=== PATIENT | male | born 1960 | race Two or more races ===

== ENCOUNTER 2018-12-03 19:14 | Emergency (ER) | payer OTHER ==
[~2018-12-03] VITALS: Ht 172.7 cm; Wt 62.2 kg
[2018-12-03] MEDS ORDERED: ACETAMINOPHEN ES 500 MG TABLET ONE (21:20)
[2018-12-03] MEDS ORDERED: IBUPROFEN 600 MG TABLET PO ONE ×2 (21:20→21:30)
--- NOTE | 2018-12-03 21:25 | NUR ---
BIB FAMILY C/O COUGH/CONGESTION WITH FEVER X 1 MONTH. SENT HERE FROM URGENT. PT AAOX4, VSS. DENIES CP, DIZZINESS, N/V @ THIS TIME. PT SEEN & EVAL'D BY KIKA JETER. MEDICATED FOR FEVER & WILL CONT TO MONITOR.
[2018-12-03] MEDS ORDERED: LEVOFLOXACIN 750 MG /D5W 150ML 150 ML IV ONE ×2 (21:28→21:30)
[2018-12-03] MEDS ORDERED: ACETAMINOPHEN ES 500 MG TABLET PO ONE (21:30)
[2018-12-03 21:43] LABS: BASOPHILS # (AUTO) 0.1 /CMM (0.0-0.2); BASOPHILS % (AUTO) 0.5 % (0.0-2.0); EOSINOPHILS % (AUTO) 4.3 % (0.0-6.0); HEMATOCRIT 43 % (39-51); HEMOGLOBIN 14.9 g/dL (13.5-17.5); LYMPHOCYTES # (AUTO) 1.6 /CMM (0.8-4.8); MEAN CORPUSCULAR HGB CONC 34 g/dl (31.0-36.0); MEAN CORPUSCULAR VOLUME 90 fL (80-96); MONOCYTES # (AUTO) 0.9 /CMM (0.1-1.30); MONOCYTES % (AUTO) 7.3 % (2.0-12.0); NEUTROPHILS # (AUTO) 9.1 /CMM (1.8-8.9); NEUTROPHILS % (AUTO) 74.9 % (43.0-81.0); PLATELET COUNT (AUTO) 265 /CMM (150-450); RED BLOOD CELL COUNT(AUTO) 4.85 MIL/uL (4.5-6.0); WHITE BLOOD COUNT (AUTO) 12.2 K/uL (4.3-11.0)
[2018-12-03 21:51] LABS: CALCIUM, SERUM 8.7 mg/dL (8.5-10.1); CREATININE 0.8 mg/dL (0.6-1.3); POTASSIUM 3.8 mmol/L (3.5-5.1)
[2018-12-03] MEDS ORDERED: CODEINE/PROMETHAZINE HCL 5 ML UDC PO PRN (22:30)
[2018-12-03] MEDS ORDERED: diphenhydrAMINE HCL 50 MG/ML VIAL IV ONE (23:00)
[2018-12-03] MEDS ORDERED: methylPREDNISolone SOD SUCC 125 MG/2ML VIAL IV ONE (23:00)
[2018-12-03] MEDS ORDERED: DOXYCYCLINE HYCLATE (100 MG) 100 MG TABLET PO ONE (23:00)
[2018-12-03] MEDS ORDERED: FAMOTIDINE (20 MG) 20 MG TABLET PO ONE (23:00)
--- NOTE | 2018-12-03 23:00 | NUR ---
PT HAD ALLERGIC RXN FROM [facility], PT FELT WARM & REDNESS & WELTS ON FACE. DENIES SOB OR RESP DISTRESS NOTED. KIKA JETER AWARE.
[2018-12-03] MEDS ORDERED: DOXYCYCLINE HYCLATE (100 MG) 100 MG TABLET ONE (23:14)
[2018-12-03] MEDS ORDERED: methylPREDNISolone SOD SUCC 125 MG/2ML VIAL ONE (23:14)
[2018-12-03] MEDS ORDERED: diphenhydrAMINE HCL 50 MG/ML VIAL ONE (23:14)
[2018-12-03] MEDS ORDERED: FAMOTIDINE/PF INJ 20 MG/2 ML VIAL IV ONE ×2 (23:15→23:30)
--- NOTE | 2018-12-03 23:36 | NUR ---
MEDICATED FOR ALLERGIC RXN, PT DANETTE WELL.
[2018-12-04 00:01] VITALS: BP 134/84
--- NOTE | 2018-12-04 00:01 | NUR ---
Patient discharged to home in stable condition. Written and verbal after care instructions given. Patient verbalizes understanding of instruction. IV removed. Catheter intact and site benign. Pressure and 4x4 applied to site. No bleeding noted.
== END 2018-12-04 00:04 | disposition home or self-care (01) ==
LOC: ER 19:16
DX: J18.9 Pneumonia, unspecified organism (principal); I10 Essential (primary) hypertension; F17.200 Nicotine dependence, unspecified, uncomplicated; Z88.0 Allergy status to penicillin
CPT/HCPCS: 36415; 71045-TC; 80048-TC; 85025-TC; 87400; J1200; J1956; J2930; J3490

== ENCOUNTER 2019-04-22 20:44 | Inpatient (IN) | payer BC, OTHER ==
[~2019-04-22] VITALS: Ht 182.9 cm; Wt 53.5 kg
--- NOTE | 2019-04-22 20:50 | NUR ---
[id number] FROM HOME C/O SOB X1 DAY. PER RA, PT O2 SAT 60% ON ARRIVAL. PT PLACED ON CPAP EN ROUTE, O2 SAT 91-92%. PT APPEARS UNCOMFORTABLE AND DIAPHORETIC. NOTED TACHYPNEA. PLACED ON CONTINUOUS RESEARCH QUALITY ASSURANCE SPECIALIST AND PULSE OX, WILL CONTINUE TO MONITOR
[2019-04-22 21:00] VITALS: BP 189/117
[2019-04-22] MEDS ORDERED: LORAZEPAM INJ 2 MG/ML VIAL IV ONE (21:00)
[2019-04-22] MEDS ORDERED: LORAZEPAM INJ 2 MG/ML VIAL ONE (21:01)
--- NOTE | 2019-04-22 21:05 | NUR ---
BROADCAST DIRECTOR OPERATIONS AT BEDSIDE FOR BLOOD DRAW
--- NOTE | 2019-04-22 21:12 | NUR ---
RT AT BEDSIDE FOR BIPAP
[2019-04-22 21:13] LABS: BASOPHILS # (AUTO) 0.1 /CMM (0.0-0.2); BASOPHILS % (AUTO) 0.2 % (0.0-2.0); EOSINOPHILS % (AUTO) 0.2 % (0.0-6.0); HEMATOCRIT 44 % (39-51); HEMOGLOBIN 13.9 g/dL (13.5-17.5); LYMPHOCYTES # (AUTO) 2.3 /CMM (0.8-4.8); LYMPHOCYTES % (AUTO) 6.9 % (20.0-44.0); MEAN CORPUSCULAR HGB CONC 32 g/dl (31.0-36.0); MEAN CORPUSCULAR VOLUME 91 fL (80-96); MONOCYTES # (AUTO) 1.6 /CMM (0.1-1.30); MONOCYTES % (AUTO) 4.9 % (2.0-12.0); NEUTROPHILS # (AUTO) 28.7 /CMM (1.8-8.9); NEUTROPHILS % (AUTO) 87.8 % (43.0-81.0); RED BLOOD CELL COUNT(AUTO) 4.82 MIL/uL (4.5-6.0)
[2019-04-22 21:20] LABS: CALCIUM, SERUM 9.1 mg/dL (8.5-10.1); CARBON DIOXIDE 21 mmol/L (21-32); CHLORIDE 104 mmol/L (98-107); CREATININE 0.7 mg/dL (0.6-1.3); GLUCOSE 182 mg/dL (74-106); POTASSIUM 4.6 mmol/L (3.5-5.1); SODIUM SERUM 142 mmol/L (136-145); UREA NITROGEN, BLOOD 29 mg/dL (7-18)
[2019-04-22 21:27] LABS: ALANINE AMINOTRANSFERASE 45 U/L (12-78); ALBUMIN 3.4 g/dL (3.4-5.0); ALKALINE PHOSPHATASE 87 U/L (46-116); ASPARTATE AMINOTRANSFERASE 38 U/L (15-37); BILIRUBIN,DIRECT 0.2 mg/dL (0.0-0.2); BILIRUBIN,TOTAL 0.8 mg/dL (0.2-1.0); TOTAL PROTEIN, SERUM 6.8 g/dL (6.4-8.2)
[2019-04-22 21:30] LABS: WHITE BLOOD COUNT (AUTO) 32.7 K/uL (4.3-11.0)
[2019-04-22 21:31] LABS: PLATELET COUNT (AUTO) 39 /CMM (150-450)
[2019-04-22] MEDS ORDERED: ETOMIDATE 2 MG/ML VIAL ONE (21:31)
--- NOTE | 2019-04-22 21:41 | NUR ---
DR. ALEXANDER, RN, AND RT AT BEDSIDE FOR CHEST TUBE PLACEMENT
--- NOTE | 2019-04-22 21:48 | NUR ---
CHEST TUBE SUCCESSFULLY INSERTED. 16FR.
[2019-04-22 21:49] LABS: BAND % (MANUAL) 3 % (0.0-5.0); LYMPHOCYTES % (MANUAL) 11 % (16-48); MONOCYTES % (MANUAL) 9 % (0-11.0); NEUTROPHILS % (MANUAL) 75 (42-76); REACTIVE LYMPHOCYTES 2 % (0-0)
--- NOTE | 2019-04-22 21:50 | NUR ---
RT PT CAME IN VIA EMS ON CPAP FOR SOB, DNR/ DNI ALERT AWAKE WITH SEVERE RESP DISTRESS, PLACED ON NON REBREATHER, NT SX THICK YELLOW - PINK TINGE SECRETIONS, PLACED ON BIPAP PER MD FOR RESP DISTRESS, CHEST XRAY DONE RIGHT PNEUMOTHORAX, PLACED PT ON NON REBREATHER FOR CHEST TUBE INSERTION Addendum: 04/22/19 at 1116 by HOLLY BELLAMY RT Amended: Links added.
--- NOTE | 2019-04-22 21:59 | NUR ---
RADIOLOGY AT BEDSIDE FOR CXR
[2019-04-22] MEDS ORDERED: IV NS 0.9% 1,000 ML IV ONE ×2 (22:00→22:30)
--- NOTE | 2019-04-22 22:02 | NUR ---
ICU 259, STILL WAITING FOR NURSE
[2019-04-22] MEDS ORDERED: CLINDAMYCIN 900 MG/6 ML VIAL ONE (22:15)
[2019-04-22] MEDS ORDERED: HYDROMORPHONE 1 MG/1 ML DISP.SYRIN ONE (22:16)
[2019-04-22] MEDS ORDERED: CLINDAMYCIN 600 MG in IV D5W 100 ML IV ONE (22:30)
[2019-04-22] MEDS ORDERED: HYDROMORPHONE INJ 0.5 MG/0.5 ML SYRINGE IV ONE (22:30)
[2019-04-22] MEDS ORDERED: ETOMIDATE 2 MG/ML VIAL IV ONE (23:00)
--- NOTE | 2019-04-22 23:08 | NUR ---
ATTEMPTED TO GIVE REPORT, NO NURSE ASSIGNED
[2019-04-22] MEDS ORDERED: MORPHINE SULFATE INJ 2 MG/ML DISP.SYRIN IV PRN (23:30)
[2019-04-22] MEDS ORDERED: GLYCOPYRROLATE 0.2 MG/ML VIAL IV PRN (23:30)
[2019-04-22] MEDS ORDERED: ONDANSETRON HCL/PF 4 MG/2 ML VIAL IVP PRN (23:30)
[2019-04-22] MEDS ORDERED: LORAZEPAM INJ 2 MG/ML VIAL IVP PRN (23:30)
[2019-04-22] MEDS ORDERED: ACETAMINOPHEN 650 MG/SUPP.RECT RC PRN (23:30)
[2019-04-22] MEDS ORDERED: SCOPOLAMINE HBR 1 EA PATCH.TD72 TD SCH (23:30)
[2019-04-23] VITALS (20 sets, daily range): BP systolic 105–155; BP diastolic 58–86
--- NOTE | 2019-04-23 00:16 | NUR ---
PT TRANSFERRED PER ACLS PROTOCOL
--- NOTE | 2019-04-23 00:30 | NUR ---
RN PT REFUSED SKIN AND BODY ASSESSMENT AT THIS TIME. , WILL FOLLOW UP IN AM
--- NOTE | 2019-04-23 01:30 | NUR ---
RN PT RECEIVED FROM ER VIA [facility], PT ON NON REBREATHER MASK 15L, WITH CHEST TUBE ON RIGHT SIDE, NOTED WITH AUDIBLE GURGLING , POSSIBLE AIR LEAK, DRESSING REMOVED AND NOTED IMPROPER SEAL FROM CHEST TUBE TO CHAMBER. CALLED ER TO NOTIFIED MD. ER NURSE AT BEDSIDE ABLE TO RESEAL LEAK WITH TAPE. JORGE LOYD ICER AIR CONDITIONING MADE AWARE, WITH NO NEW ORDER RECEIVED, WILL CONTINUE CLOSE MONITORING .
--- NOTE | 2019-04-23 03:00 | NUR ---
RN AT BEDSIDE, PT REQUESTED TO CALL TO STAY WITH PT OVERNIGHT. CHARGE NURSE AWARE.
--- NOTE | 2019-04-23 05:03 | NUR ---
RN BLOOD BANK CALLED, [facility] WILL DELIVER PLATELETS AROUND 7-7:30 AM , CHARGE NURSE AWARE.
--- NOTE | 2019-04-23 05:40 | NUR ---
RN PT REQUESTED TO DRINK , SPOKE TO NICKOLAS, WITH ORDER TO DO BEDSIDE SWALLOW EVAL AND ORDER ST IN AM. CHARGE NURSE AWARE. PATIENT AND MADE AWARE
--- NOTE | 2019-04-23 07:06 | NUR ---
RN TOTAL AMOUNT FROM CHEST TUBE 75 ML
--- NOTE | 2019-04-23 07:26 | NUR ---
OPENING PT ON NRM AT 15 LPM CURRENTLY SLEEPING FAMILY AT BEDSIDE BEING TRANSFUSED WITH PLATELETS RUNNING THROUGH 22G IN RAC CLEAN DRY INTACT. PT HAS 20G IN L-HAND WITH SKIN RED FROM HEMATOMA H/L.PT ST 126 ON AUDIT SPECIALIST. PT COMFORT MEASURES ONLY STATUS. PT HAS RIGHT SIDE CHEST TUBE WITH SEROSANGUINEOUS LIQUID IN TUBING. PT NPO PENDING SWALLOW EVALUATION. HOB ELEVATED CALL SPARKS NEXT TO PT BED IN LOW POSITION WILL CONTINUE TO MONITOR
[2019-04-23] MEDS ORDERED: ALBU8.5H8 IH (08:17)
[2019-04-23] MEDS ORDERED: FAMO20TA80 PO (08:17)
[2019-04-23] MEDS ORDERED: DEXA4TAB PO (08:17)
[2019-04-23] MEDS ORDERED: METO25TA6 PO (08:17)
--- NOTE | 2019-04-23 08:22 | NUR ---
TRANSFUSION TRANSFUSION COMPLETED AT 0811 TOLERATED WELL VITAL SIGNS STABLE
[2019-04-23] MEDS ORDERED: PANTOPRAZOLE 40 MG VIAL IV SCH (09:00)
[2019-04-23] MEDS ORDERED: NEXIUM 40 MG VIAL IV SCH (10:00)
[2019-04-23] MEDS: FAMOTIDINE/PF INJ 20 MG/2 ML VIAL IV SCH ×2 (10:29→21:02)
[2019-04-23] MEDS: CLINDAMYCIN 600 MG in IV D5W 50 ML IV SCH ×2 (12:24→21:02)
--- NOTE | 2019-04-23 14:02 | NUR ---
PT DOWN GRADED TO MED SURG TAKEN SAFELY TO ROOM 110
[2019-04-23] MEDS ORDERED: VANCOMYCIN 1 GM in IV D5W 250 ML IV ONE (14:30)
--- NOTE | 2019-04-23 15:13 | NUR ---
PT WANTS TO EAT SOB ON NRM AND RIGHT SIDED CHEST TUBE PT HAS SWALLOW EVAL ORDERED CALL FOR EVALUATION NOT AVAILABLE. ATTEMPTED TO DO EVALUATION PT ABLE TO EAT ICE CHIPS DRINK WATER AND THEN REFUSED JUICE WILL CONTINUE TO MONITOR FOR FURTHER PROGRESS. TEXTED MD LOYD FAMILY WANTS UP DATE ON PLAN OF CARE
[2019-04-23] MEDS ORDERED: FEE PK DOSING 1 MIN EA MC ONE (15:20)
--- NOTE | 2019-04-23 17:29 | NUR ---
FAMILY SPOKE WITH [facility] CONSENT SIGNED 04/24 CANDY BAR ATTENDANT WILL EVALUATE PT FOR PLACEMENT. SPOKE WITH MD HAIR ABOUT FAMILY HOSPICE CONCERN AND MED RECONCILIATION WELL
[2019-04-23] MEDS ORDERED: IPRATROPIUM NEB FS 0.5 MG/2.5 ML AMPUL.NEB NEB PRN (17:30)
[2019-04-23] MEDS ORDERED: ALBUTEROL FS 2.5 MG/0.5 ML VIAL.NEB NEB PRN (17:30)
[2019-04-23] MEDS: METOPROLOL TARTRATE 25 MG TABLET PO SCH (17:37)
[2019-04-23] MEDS: VANCOMYCIN 0.75 GM in IV D5W 250 ML IV SCH (17:55)
[2019-04-23] MEDS: DEXAMETHASONE 4 MG TABLET PO SCH (18:24)
--- NOTE | 2019-04-23 18:57 | NUR ---
CLOSING PT ON NON REBREATHER MASK 15L, WITH CHEST TUBE ON RIGHT SIDE, 15% OF VOLUME PRESENT PER AM X-RAY NOTED WITH AUDIBLE GURGLING , POSSIBLE AIR LEAK, DRESSING REMOVED AND NOTED IMPROPER SEAL FROM CHEST TUBE TO CHAMBER. PT KEPT SAFE ALL SHIFT ALL NEEDS ATTENDED TO WILL GIVE REPORT TO PM SHIFT RN FOR CONTINUITY OF CARE .
--- NOTE | 2019-04-23 19:00 | NUR ---
MS/RN NOTES PT IN BED RESTING COMFORTABLY AT THIS TIME. NO S/S OF ACUTE DISTRESS NOTED. RESPIRATION EVEN AND UNLABORED. NO SOB NOTED. PATIENT ON 15 LITTLER VIA NON- REBREATHER MASK, SATURATION NOTED 98%. CHEST TUBE IN PLACE, PATENT, DRAINING WELL WITH SEROSANGUINEOUS COLOR LIQUID. PATIENT A/O X4, DENIES ANY PAIN OR DISCOMFORT AT THIS TIME. WILL CONTINUE TO MONITOR PATIENT PER PLAN OF CARE, SAFETY MAINTAINED, BED AT THE LOWEST POSITION, LOCKED, X2 SIDE RAILS UP. HOB ELEVATED JERRY POSITION AT AL THE TIME. CALL LIGHT WITHIN REACH.
--- NOTE | 2019-04-23 23:55 | NUR ---
FLOORING GRADER NOTE RECEIVED MIDSHIFT REPORT FROM ANTOLIN FERRERA. PT IN STABLE CONDITION A&O X3. AT BEDSIDE. PT. CURRENTLY ASLEEP WITH NONREBREATHER 15 L, TOLERATING WELL. NO SIGNS OF SOB OR DISTRESS, NO C/O PAIN. TELE MONITOR READING ST WITH PVC'S. RFA IV IN PLACE. CHEST TUBE IN PLACE WITH DRAINAGE NOTED. ALL CURRENT NEEDS MET. BED LOW, LOCKED, UPPER RAILS UP, COMFORT MEASURES IN PLACE, AND CALL LIGHT WITHIN REACH. WILL CONT. TO MONITOR.
[2019-04-24] MEDS: VANCOMYCIN 0.75 GM in IV D5W 250 ML IV SCH ×2 (00:01→08:45)
[2019-04-24 04:00] VITALS: BP 140/79
[2019-04-24] MEDS: CLINDAMYCIN 600 MG in IV D5W 50 ML IV SCH ×2 (04:46→13:00)
--- NOTE | 2019-04-24 06:49 | NUR ---
MS RN NOTE PT IN STABLE CONDITION A&O X3. AT BEDSIDE. PT. CURRENTLY ASLEEP WITH NONREBREATHER 15 L, TOLERATING WELL. NO SIGNS OF SOB OR DISTRESS, NO C/O PAIN. TELE MONITOR READING ST WITH PVC'S. RFA IV IN PLACE. CHEST TUBE IN PLACE WITH DRAINAGE NOTED. ALL CURRENT NEEDS MET. BED LOW, LOCKED, UPPER RAILS UP, PT. REPOSITION PER UNIT PROTOCOL, COMFORT MEASURES IN PLACE, AND CALL LIGHT WITHIN REACH. WILL CONT. TO MONITOR AND ENDORSE TO NEXT SHIFT FOR MILE.
[2019-04-24 07:27] LABS: CALCIUM, SERUM 8.4 mg/dL (8.5-10.1); CREATININE 0.6 mg/dL (0.6-1.3); MAGNESIUM 1.7 mg/dL (1.8-2.4); PHOSPHORUS 3.8 mg/dL (2.5-4.9)
--- NOTE | 2019-04-24 07:30 | NUR ---
OUTER DIAMETER GRINDER TOOL NOTE RECEIVED PT IN BED, PT IN STABLE CONDITION A&O X3. AT BEDSIDE. PT. CURRENTLY ASLEEP WITH NONREBREATHER 15 L, TOLERATING WELL. NO SIGNS OF SOB OR DISTRESS, NO C/O PAIN. RFA IV FLUSHES WELL, SITE CLEAR. CHEST TUBE TO CONTINUOUS SUCTION IN PLACE, REDDISH DRAINAGE. NEEDS ANTICIPATED. BED LOW, LOCKED, UPPER RAILS UP, COMFORT MEASURES IN PLACE, AND CALL LIGHT WITHIN REACH. WILL CONT. TO MONITOR.
[2019-04-24 07:52] LABS: BASOPHILS % (AUTO) 0.1 % (0.0-2.0); EOSINOPHILS % (AUTO) 0.1 % (0.0-6.0); HEMATOCRIT 34 % (39-51); HEMOGLOBIN 11.2 g/dL (13.5-17.5); LYMPHOCYTES # (AUTO) 0.8 /CMM (0.8-4.8); LYMPHOCYTES % (AUTO) 4.9 % (20.0-44.0); MEAN CORPUSCULAR HGB CONC 33 g/dl (31.0-36.0); MEAN CORPUSCULAR VOLUME 89 fL (80-96); MONOCYTES # (AUTO) 0.8 /CMM (0.1-1.30); MONOCYTES % (AUTO) 4.4 % (2.0-12.0); NEUTROPHILS # (AUTO) 15.6 /CMM (1.8-8.9); NEUTROPHILS % (AUTO) 90.5 % (43.0-81.0); RED BLOOD CELL COUNT(AUTO) 3.78 MIL/uL (4.5-6.0); WHITE BLOOD COUNT (AUTO) 17.3 K/uL (4.3-11.0)
[2019-04-24 08:00] VITALS: BP 133/73
[2019-04-24 08:12] LABS: PLATELET COUNT (AUTO) 23 /CMM (150-450)
[2019-04-24] MEDS: DEXAMETHASONE 4 MG TABLET PO SCH (08:45)
[2019-04-24] MEDS: FAMOTIDINE/PF INJ 20 MG/2 ML VIAL IV SCH (08:46)
[2019-04-24] MEDS: METOPROLOL TARTRATE 25 MG TABLET PO SCH (08:46)
[2019-04-24 09:20] LABS: BAND % (MANUAL) 3 % (0.0-5.0); LYMPHOCYTES % (MANUAL) 5 % (16-48); MONOCYTES % (MANUAL) 10 % (0-11.0); NEUTROPHILS % (MANUAL) 82 (42-76)
--- NOTE | 2019-04-24 09:30 | NUR ---
MS RN NOTES DUE MEDS GIVEN.
--- NOTE | 2019-04-24 11:30 | NUR ---
RN NOTES PATIENT ADMITTED TO HOSPICE. UNDER GIP LEVEL OF CARE. PER DR. [facility] , DC ALL MEDICATIONS EXCEPT COMFORT MEDS ONLY. DC ALL IVS
[2019-04-24 12:00] VITALS: BP 141/74
[2019-04-24] MEDS: Magnesium 1GM/D5W 100ML PREMIX 100 ML IV SCH ×2 (12:01→13:01)
--- NOTE | 2019-04-24 13:50 | NUR ---
MS RN NOTES PATIENT DISCHARGED. TRANSFERRED TO HOSPICE SERVICE. HOSPICE EXPLANATION OF BENEFITS SIGNED BY .
== END 2019-04-24 13:52 | disposition hospice, home (50) | DRG 871 ==
LOC: ER 20:45 → ICU 22:14 → MEDSG1 04-23 13:13
PROVIDERS: ADMIT Registered Nurse; ATTEND Student in an Organized Health Care Education/Training Program
PROC: 5A09357 Assistance with Respiratory Ventilation, Less than 24 Consecutive Hours, Continuous Positive Airway Pressure (ICD-10-PCS; principal; 2019-04-23)
PROC: 30233R1 Transfusion of Nonautologous Platelets into Peripheral Vein, Percutaneous Approach (ICD-10-PCS; principal; 2019-04-23)
DX: A41.9 Sepsis, unspecified organism (principal); E43 Unspecified severe protein-calorie malnutrition; I21.A1 Myocardial infarction type 2; J15.9 Unspecified bacterial pneumonia; J96.21 Acute and chronic respiratory failure with hypoxia; E87.2 Acidosis; J93.83 Other pneumothorax; C34.90 Malignant neoplasm of unspecified part of unspecified bronchus or lung; C79.31 Secondary malignant neoplasm of brain; Z68.1 Body mass index [BMI] 19.9 or less, adult; Z66 Do not resuscitate; D69.59 Other secondary thrombocytopenia; Z87.891 Personal history of nicotine dependence; Z99.81 Dependence on supplemental oxygen; Z51.5 Encounter for palliative care; E88.09 Other disorders of plasma-protein metabolism, not elsewhere classified; R65.20 Severe sepsis without septic shock
CPT/HCPCS: 31720; 32551; 36415; 71045-TC; 80048-TC; 80076-TC; 80202-TC; 82962-TC; 83605-TC; 83735-TC; 84100-TC; 84484-TC; 85025-TC; 85730-TC; 86850-TC; 87040-TC; 87081-TC; 92526; 92611-TC; A4217; A6402; G0378; J1170; J2060; J3370; J3490; J7030; J7060; J8540; P9016-BL; P9034-BL

== ENCOUNTER 2019-04-24 13:25 | Inpatient (IN) | payer OTHER ==
[~2019-04-24] VITALS: Ht 182.9 cm; Wt 53.5 kg
[~2019-04-24 13:25] MED LIST: ALBU8.5H8 IH; DEXA4TAB PO; FAMO20TA80 PO; METO25TA6 PO
[2019-04-24 13:50] VITALS: BP 141/74
[2019-04-24] MEDS ORDERED: ONDANSETRON HCL/PF 4 MG/2 ML VIAL IV PRN (14:00)
[2019-04-24] MEDS ORDERED: SCOPOLAMINE HBR 1 EA PATCH.TD72 TD SCH (14:00)
[2019-04-24] MEDS ORDERED: ACETAMINOPHEN 650 MG/SUPP.RECT RC PRN (14:00)
[2019-04-24] MEDS ORDERED: LORAZEPAM INJ 2 MG/ML VIAL IV PRN (14:00)
[2019-04-24] MEDS ORDERED: MORPHINE SULFATE SOLN CONCENTRATED 20 MG/ML PO PRN (14:00)
[2019-04-24 20:00] VITALS: BP 140/86
[2019-04-24] MEDS: MORPHINE SULFATE INJ 4 MG/ML DISP.SYRIN IV PRN (22:48)
[2019-04-25 04:00] VITALS: BP 112/57
[2019-04-25 08:00] VITALS: BP 141/69
[2019-04-25] MEDS ORDERED: ZOLPIDEM TARTRATE 5 MG TABLET PO PRN (08:30)
[2019-04-25] MEDS ORDERED: DEXAMETHASONE 4 MG TABLET PO SCH (09:00)
[2019-04-25] MEDS ORDERED: FAMOTIDINE (20 MG) 20 MG TABLET PO SCH (09:00)
[2019-04-25] MEDS: LORAZEPAM INJ 2 MG/ML VIAL IV PRN ×3 (09:09→17:38)
[2019-04-25] MEDS: IPRATROPIUM NEB FS 0.5 MG/2.5 ML AMPUL.NEB NEB PRN ×2 (13:57→19:40)
[2019-04-25] MEDS: MORPHINE SULFATE INJ 4 MG/ML DISP.SYRIN IV PRN ×2 (15:13→20:40)
[2019-04-25 16:00] VITALS: BP 148/66
[2019-04-25] MEDS ORDERED: ENSURE CLEAR 237 ML LIQUID (MIX BERRY) PO SCH (18:00)
== END 2019-04-25 22:10 | disposition expired | DRG 871 ==
LOC: HOSPICE1 13:25
PROVIDERS: ADMIT Student in an Organized Health Care Education/Training Program; ATTEND Student in an Organized Health Care Education/Training Program
DX: A41.9 Sepsis, unspecified organism (principal); I21.A1 Myocardial infarction type 2; E43 Unspecified severe protein-calorie malnutrition; J96.21 Acute and chronic respiratory failure with hypoxia; J15.9 Unspecified bacterial pneumonia; J93.9 Pneumothorax, unspecified; J98.11 Atelectasis; C79.31 Secondary malignant neoplasm of brain; C34.90 Malignant neoplasm of unspecified part of unspecified bronchus or lung; E87.2 Acidosis; Z68.1 Body mass index [BMI] 19.9 or less, adult; Z66 Do not resuscitate; D69.59 Other secondary thrombocytopenia; R65.20 Severe sepsis without septic shock; E88.09 Other disorders of plasma-protein metabolism, not elsewhere classified; Z51.5 Encounter for palliative care
CPT/HCPCS: 94799-TC; G0378; J2060; J2270; J7060; J8540